=== PATIENT | male | born 1980 | race Asian ===

== ENCOUNTER → 2019-08-28 | Outpatient (CLI) | payer OTHER | LOC: RAD 08:20 | DX: R06.00 Dyspnea, unspecified (principal); R07.9 Chest pain, unspecified; M41.84 Other forms of scoliosis, thoracic region ==

== ENCOUNTER → 2019-09-08 | Outpatient (CLI) | payer OTHER | LOC: CAT 08:26 | DX: M41.84 Other forms of scoliosis, thoracic region (principal); J98.9 Respiratory disorder, unspecified ==